=== PATIENT | female | born 1940 | race Caucasian/White ===

== ENCOUNTER 2024-12-03 15:44 | Emergency (ER) | payer OTHER ==
[~2024-12-03] VITALS: Ht 157.5 cm; Wt 69.0 kg
[2024-12-03 15:48] VITALS: O2SAT 100
[2024-12-03 16:54] LABS: CHLORIDE 107 mEq/L (98-107); POTASSIUM 3.7 mEq/L (3.5-5.1); SODIUM 146 mEq/L (136-145)
[2024-12-03 16:55] LABS: CARBON DIOXIDE 32 mEq/L (21-32)
[2024-12-03 16:56] LABS: CALCIUM 9.4 mg/dL (8.7-10.4)
[2024-12-03 17:00] LABS: CREATININE 0.9 mg/dL (0.6-1.0); GLUCOSE 111 mg/dL (70-105)
[2024-12-03 17:01] LABS: UREA NITROGEN BLOOD 15 mg/dL (9-23)
[2024-12-03 17:02] LABS: ALANINE AMINOTRANSFERASE 21 IU/L (10-49); ALBUMIN 4.2 g/dL (3.2-4.8); ASPARTATE AMINOTRANSFERASE 28 IU/L (<34); BILIRUBIN DIRECT 0.1 mg/dL (<=3.0)
[2024-12-03 17:03] LABS: BILIRUBIN TOTAL 0.7 mg/dL (0.1-1.0); PROTEIN TOTAL 7.3 g/dL (6.0-8.3)
[2024-12-03 17:09] LABS: HEMATOCRIT. 37.8 % (36.0-48.0); MEAN CORPUSCULAR HGB CONC 31.6 g/dL (31.0-37.0); MEAN CORPUSCULAR VOLUME 69.6 fL (81.0-99.0); PLATELET 189 x1000/uL (130-400); RED BLOOD CELL COUNT 5.43 mill/uL (4.2-5.4); RED CELL DISTRIBUTION WIDTH 16.9 % (11.6-14.6); WHITE BLOOD COUNT 8.6 x1000/uL (4.5-11.0)
[2024-12-03 17:10] LABS: DIFFERENTIAL COMMENT 1
[2024-12-03 17:12] LABS: PROTHROMBIN TIME 10.9 sec (9.6-11.0); TROPONIN I HIGH SENSITIVITY < 4 ng/L (3.0-34)
[2024-12-03 18:00] VITALS: TEMP 36.9
[2024-12-03 19:30] VITALS: BP 121/81; PULSE 86; RESP 16; O2SAT 100
[2024-12-03 20:01] LABS: ANISOCYTOSIS 1+; HYPOCHROMASIA 1+; MICROCYTOSIS 3+; OVALOCYTES 1+; PLATELET ESTIMATE NORMAL
[2024-12-03] MEDS ORDERED: IOHEXOL-300 100 ML BOTTLE ONE (22:46)
== END 2024-12-03 19:31 | disposition home or self-care (01) ==
LOC: ER 15:44 → EDBEDREQ 16:29 → ER 19:31
DX: R10.9 Unspecified abdominal pain (principal); F03.90 Unspecified dementia, unspecified severity, without behavioral disturbance, psychotic disturbance, mood disturbance, and anxiety; Z88.0 Allergy status to penicillin
CPT/HCPCS: 99285; 74177; 80076; 80048; 83605; 83690; 85025; 85610; 84484; 36415; 93005; Q9967